=== PATIENT | female | born 1980 | race Caucasian/White ===

== ENCOUNTER 2018-08-21 05:26 | Emergency (ER) | payer MEDICAID ==
[~2018-08-21] VITALS: Ht 170.2 cm; Wt 75.2 kg
[2018-08-21 05:30] VITALS: BP 125/78
[2018-08-21 06:15] LABS: URINE HCG NEGATIVE (NEG)
[2018-08-21 06:27] LABS: URINE AMPHETAMINE SCREEN NEGATIVE (Neg); URINE BARBITUATE SCREEN NEGATIVE (Neg); URINE BENZODIAZEPINES SCREEN NEGATIVE (Neg); URINE CANNABINOID SCREEN NEGATIVE (Neg); URINE COCAINE SCREEN NEGATIVE (Neg); URINE METHADONE SCREEN NEGATIVE (Neg); URINE OPIATE SCREEN NEGATIVE (Neg); URINE PHENCYCLIDINE SCREEN NEGATIVE (Neg)
== END 2018-08-21 07:08 | disposition home or self-care (01) ==
LOC: ER 05:26
DX: N93.8 Other specified abnormal uterine and vaginal bleeding (principal); N94.89 Other specified conditions associated with female genital organs and menstrual cycle; F15.90 Other stimulant use, unspecified, uncomplicated
CPT/HCPCS: 80305; 81025; 99283

== ENCOUNTER 2023-04-18 09:55 | Emergency (ER) | payer MEDICAID ==
[~2023-04-18] VITALS: Ht 170.2 cm; Wt 82.3 kg
[2023-04-18 09:58] VITALS: TEMP 98.4
[2023-04-18] MEDS ORDERED: LIDOcaine 1% W/epiNEPHrine 1:100,000 20ml vial SQ ONE (11:30)
[2023-04-18] MEDS ORDERED: CEPH250T PO (11:59)
[2023-04-18] MEDS ORDERED: DOXY-356 PO (11:59)
[2023-04-18 12:43] VITALS: BP 124/89; PULSE 74; RESP 14; O2SAT 100
== END 2023-04-18 12:44 | disposition home or self-care (01) ==
LOC: ER 09:56
DX: L02.415 Cutaneous abscess of right lower limb (principal); F15.90 Other stimulant use, unspecified, uncomplicated; Z72.89 Other problems related to lifestyle; Z88.5 Allergy status to narcotic agent; Z79.2 Long term (current) use of antibiotics; Z79.899 Other long term (current) drug therapy
CPT/HCPCS: 10060; 99283; A6266; A6449

== ENCOUNTER 2024-08-08 07:10 | Emergency (ER) | payer BC, MEDICAID ==
[~2024-08-08] VITALS: Ht 170.2 cm; Wt 76.0 kg
[2024-08-08] MEDS ORDERED: NAPR-56 PO (07:21)
[2024-08-08] MEDS ORDERED: CYCL-1 PO (07:21)
[2024-08-08] MEDS: naproxen 500mg tablet PO ONE (07:33)
[2024-08-08 08:31] VITALS: BP 135/90; PULSE 71; RESP 14; TEMP 97.5; O2SAT 97
== END 2024-08-08 08:33 | disposition home or self-care (01) ==
LOC: ER 07:10
DX: R07.81 Pleurodynia (principal); F19.20 Other psychoactive substance dependence, uncomplicated
CPT/HCPCS: 71046; 99283